=== PATIENT | female | born 2000 | race Caucasian/White ===

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

== ENCOUNTER 2021-08-20 11:43 | Outpatient (CLI) | payer OTHER ==
[2021-08-20 17:51] LABS: BASOPHILS # (AUTO) 0.1 10^3/uL (0.0-0.1); BASOPHILS % (AUTO) 0.6 %; EOSINOPHILS # (AUTO) 0.1 10^3/uL (0.0-0.7); EOSINOPHILS % (AUTO) 1.2 %; HCT - HEMATOCRIT 43.6 % (37.0-47.0); HGB - HEMOGLOBIN 14.3 g/dL (12.0-16.0); LYMPHOCYTES # (AUTO) 2.3 10^3/uL (1.5-3.5); LYMPHOCYTES % (AUTO) 25.3 %; MEAN CORPUSCULAR HEMOGLOBIN 29.9 pg (27.0-31.0); MEAN CORPUSCULAR HGB CONC 32.8 g/dL (32.0-36.0); MEAN PLATELET VOLUME 10.4 fL (7.9-10.8); MONOCYTES # (AUTO) 0.5 10^3/uL (0.0-1.0); MONOCYTES % (AUTO) 6.1 %; NEUTROPHILS # (AUTO) 5.9 10^3/uL (1.5-6.6); NEUTROPHILS % (AUTO) 66.6 %; PLT - PLATELET COUNT 421 10^3/uL (130-450); RED BLOOD COUNT 4.79 10^6/uL (4.20-5.40); RED CELL DISTRIBUTION WIDTH 12.5 % (12.0-15.0); WHITE BLOOD COUNT 8.9 x10^3/uL (4.8-10.8)
[2021-08-20 18:15] LABS: ALBUMIN 4.3 g/dL (3.2-5.5); ALBUMIN/GLOBULIN RATIO 1.1 (1.0-2.2); CALCIUM 9.4 mg/dL (8.5-10.3); CREATININE 0.7 mg/dL (0.4-1.0); POTASSIUM 3.9 mmol/L (3.5-5.0); TOTAL PROTEIN 8.2 g/dL (6.7-8.2)
[2021-08-20 18:28] LABS: THYROID STIMULATING HORMONE 1.33 uIU/mL (0.34-5.60)
== END 2021-08-20 11:44 | disposition home or self-care (01) ==
LOC: LAB.N 11:43
PROVIDERS: ATTEND Physician Assistant
DX: L50.9 Urticaria, unspecified (principal); Z13.9 Encounter for screening, unspecified; Z13.29 Encounter for screening for other suspected endocrine disorder; R05.8 Other specified cough
CPT/HCPCS: 36415; 80053; 81599; 84443; 85025; 86003; 86480

== ENCOUNTER 2022-04-10 18:49 | Outpatient (CLI) | payer OTHER ==
--- NOTE | 2022-04-11 02:54 | Ultrasound Report ---
PROCEDURE: Pelvic w/Transvaginal INDICATIONS: DYSPAREUNIA, BREAK THROUGH BLEEDING TECHNIQUE: Real-time scanning was performed of the pelvic organs, with image documentation. Additional endovagi nal scanning was necessary due to incomplete visualization of the adnexal and endometrial structures by transabdominal scanning. COMPARISON: None. FINDINGS: Uterus: Uterus is anteverted and measures 6.3 x 2.1 x 3.6 cm. The endometrium measures up to 0.3 cm in thickness. No uterine mass lesions identified. Ovaries: The right ovary measures 1.4 x 1 x 1.2 cm, with a calculated ovarian volume of 0.8 cc. The left ovary measures 1.9 x 0.8 x 0.2 cm, with a calculated ovarian volume of 1.6 cc. The ovaries have a normal sonographic appearance. Less than 12 follicles can be seen in each ovary. No adnexal masses . Other: No pathologic free abdominal or pelvic fluid. IMPRESSION: 1. Normal sonographic study of the pelvis. Reviewed by: Dionisio Fishman MD on 04/11/2022 2:52 AM PST Approved by: Dionisio Fishman MD on 04/11/2022 2:52 AM PST Station ID: [id number]
== END 2022-04-10 18:50 | disposition home or self-care (01) ==
LOC: DI 18:49
PROVIDERS: ATTEND Nurse Practitioner Family
DX: N94.19 Other specified dyspareunia (principal); N92.6 Irregular menstruation, unspecified

== ENCOUNTER 2023-12-06 08:30 | Outpatient (CLI) | payer OTHER ==
--- NOTE | 2023-12-07 09:06 | Ultrasound Report ---
LIMITED ULTRASOUND OF RIGHT BREAST: 12/06/2023 CLINICAL: Palpable right breast lump. No prior exams were available for comparison. Color flow ultrasound of the right breast 2 o'clock region was performed. Brooks scale images of the r eal-time examination were reviewed. There is a 1.8 cm x 0.8 cm x 1.6 cm wider than tall oval mass in the right breast at 2 o'clock anteri or depth 2 cm from the nipple. This oval mass is hypoechoic with a well-defined boundary and no post erior acoustic shadowing or enhancement. This correlates as palpated and with area of clinical cb rn. Color flow imaging demonstrates that there is vascularity present. IMPRESSION: PROBABLY BENIGN The 1.8 cm x 0.8 cm x 1.6 cm wider than tall oval mass in the right breast most likely is a fibroaden naveen and is probably benign. A follow-up right ultrasound in 6 months is recommended to demonstrate stability. The patient may d ecide to pursue biopsy in lieu of imaging observation and will contact clinic if she changes her mind . Findings and recommendations were conveyed to the patient during today's evaluation. This exam was interpreted at Station ID: [id number]. Electronically Signed By: Wilton Sung M.D. aty/:12/06/2023 09:22:01 Ultrasound BI-RADS: 3 Probably benign BI-RADS CATEGORY: (3) - 3 Ultrasound [id number] 6 month follow-up LATERALITY: (R)
== END 2023-12-06 08:31 | disposition home or self-care (01) ==
LOC: DI 08:30
PROVIDERS: ATTEND Nurse Practitioner
DX: N63.12 Unspecified lump in the right breast, upper inner quadrant (principal)